=== PATIENT | female | born 1975 | race Hispanic/Latino ===

== ENCOUNTER 2024-04-11 19:24 | Emergency (ER) | payer BC, OTHER ==
[2024-04-11] MEDS ORDERED: hydrALAZINE 25 MG TAB ONE (20:01)
[2024-04-11 20:15] LABS: Bilirubin Negative (Negative); Blood, Urine Trace (Negative); Clarity Clear (Clear); Glucose, Urine (Dipstick) Negative (Negative); Ketone, Urine Negative (Negative); Leukocyte Negative (Negative); Nitrite Negative (Negative); Protein, Urine (Dipstick) Negative (Neg-Trace); Specific Gravity, Urine 1.015 (1.005-1.030); Urobilinogen 0.2 mg/dL (Less than 2)
[2024-04-11 20:23] LABS: RBC/HPF 0-3 HPF (0-3); Squamous Epithelial 0-3 HPF (0-3)
== END 2024-04-11 20:54 | disposition home or self-care (01) ==
LOC: NAV ERS 19:24
DX: I10 Essential (primary) hypertension (principal); G43.909 Migraine, unspecified, not intractable, without status migrainosus
CPT/HCPCS: 81001; 99284

== ENCOUNTER 2024-12-25 08:18 | Emergency (ER) | payer BC, OTHER ==
[2024-12-25] MEDS ORDERED: HYDROcodone/Acetaminophen 5/325 mg Tablet ONE (10:10)
== END 2024-12-25 10:37 | disposition home or self-care (01) ==
LOC: NAV ERS 08:18
DX: S52.125A Nondisplaced fracture of head of left radius, initial encounter for closed fracture (principal); I10 Essential (primary) hypertension; W07.XXXA Fall from chair, initial encounter; Y93.89 Activity, other specified
CPT/HCPCS: 99283